=== PATIENT | male | born 1955 | race Caucasian/White ===

== ENCOUNTER 2016-04-30 12:03 | Emergency (ER) | payer OTHER ==
[2016-04-30] MEDS ORDERED: Ondansetron INJ* 2 MG/ML VIAL IV ONE (12:22)
[2016-04-30] MEDS: NS 0.9% 1000 ML* 2,000 ML IV ONE ×2 (12:35→13:11)
[2016-04-30 12:40] LABS: Hematocrit 46 % (42-52); Mean Corpuscular HGB Conc 35 g/dl (31-36); Mean Corpuscular Hemoglobin 32 pg (27-31); Mean Corpuscular Volume 92 fL (80-94); Mean Platelet Volume 7 um3 (7.4-10.4); Red Blood Count 4.99 10^6/ul (4.0-5.4); Red Cell Distribution Width 13 % (10.5-15)
[2016-04-30 12:55] LABS: ALT 27 U/L (7-52); AST 19 U/L (13-39); Albumin 4.6 g/dL (3.2-5.2); Alkaline Phosphatase 51 U/L (34-104); Anion Gap 5 mmol/L (2-11); BUN/Creatinine Ratio 10.7 (8-20); Blood Urea Nitrogen 13 mg/dL (6-24); C Reactive Protein < 1.00 mg/L (< 5.00); CO2 Carbon Dioxide 29 mmol/L (22-32); Calcium 9.6 mg/dL (8.6-10.3); Chloride 101 mmol/L (101-111); EGFR African American 77.4 (>60); EGFR Non-African American 60.2 (>60); Globulin 2.8 g/dL (2-4); Glucose 105 mg/dL (70-100); Potassium 3.8 mmol/L (3.5-5.0); Sodium 135 mmol/L (133-145); Total Protein 7.4 g/dL (6.4-8.9)
[2016-04-30 14:12] LABS: Urine Bilirubin Negative (Negative); Urine Glucose Negative (Negative); Urine Nitrite Negative (Negative)
[2016-04-30 14:32] VITALS: BP 148/83
--- NOTE | 2016-04-30 20:38 | ED ---
Colt Oliver Anna, scribed for Octaviano Coreas MD on 04/30/16 at 1218 . GI/ HPI - HPI Summary HPI Summary: Patient is a 61 y/o male coming to [facility] presenting with intermittent emesis that began four days ago. He is additionally experiencing nausea, abdominal cramping, and gas. He describes the severity of the cramping as 3/10. Denies diarrhea. The symptoms began four days ago, subsided three days ago, then returned that evening. The symptoms persisted through another day, then subsided again yesterday, when he felt mostly better. Then the symptoms returned this morning. He has not been able to eat much. He has been trying to drink Gatorade but reports he doesnt feel like hes been getting enough fluids. He had some dinner last evening at 1900, some scalloped potatoes, but has not eaten otherwise. He reports no medical problems except recent rhinorrhea. - History of Current Complaint Chief Complaint: EDNauseaVomitDiarrh Time Seen by Provider: 04/30/16 12:09 Stated Complaint: NAUSEA / VOMITING Hx Obtained From: Patient Onset/Duration: Started Days Ago, Still Present Timing: Intermittent Severity: Moderate Current Severity: Moderate Pain Intensity: 3 Pain Characteristics: Cramping Associated Signs and Symptoms: Positive: Nausea, Vomiting. Negative: Diarrhea - Allergy/Home Medications Allergies/Adverse Reactions: Allergies Allergy/AdvReac Type Severity Reaction Status Date / Time Ibuprofen Allergy Severe See Comment Verified 04/30/16 12:19 PMH/Surg Hx/FS Hx/Imm Hx Endocrine/Hematology History: Denies: Hx Diabetes, Hx Thyroid Disease Cardiovascular History: Denies: Hx Hypertension Respiratory History: Reports: Hx Sleep Apnea - HAD SURGERY ON HIS THROAT Denies: Hx Asthma, Hx Chronic Obstructive Pulmonary Disease (COPD) GI History: Denies: Hx Ulcer Musculoskeletal History: Reports: Hx Arthritis, Hx Bursitis Sensory History: Reports: Hx Contacts or Glasses - READERS Denies: Hx Hearing Aid Opthamlomology History: Reports: Hx Contacts or Glasses - READERS Psychiatric History: Reports: Hx Depression - PTSD, Hx Post Traumatic Stress Disorder - Surgical History Surgery Procedure, Year, and Place: bilateral carpal tunnel, throat surgery for lonny Hx Anesthesia Reactions: No Infectious Disease History: No Infectious Disease History: Denies: Hx Clostridium Difficile, Hx Hepatitis, Hx Human Immunodeficiency Virus (HIV), Hx of Known/Suspected MRSA, Hx Shingles, Hx Tuberculosis, Hx Known/ Suspected VRE, Hx Known/Suspected VRSA, History Other Infectious Disease, Traveled Outside the [place] in Last 30 Days - Family History Known Family History: Negative: Cardiac Disease, Diabetes - Social History Alcohol Use: Occasionally Substance Use Type: Reports: None Smoking Status (MU): Former Smoker Type: Cigars Amount Used/How Often: OCCASSIONALLY Review of Systems Positive: Nasal Discharge Positive: Abdominal Pain, Vomiting, Nausea. Negative: Diarrhea Psychological: Normal All Other Systems Reviewed And Are Negative: Yes Physical Exam Triage Information Reviewed: Yes Vital Signs On Initial Exam: Initial Vitals Temp Pulse Resp BP Pulse Ox 98.0 F 70 18 136/83 97 04/30/16 12:05 04/30/16 12:05 04/30/16 12:05 04/30/16 12:05 04/30/16 12:05 Vital Signs Reviewed: Yes Appearance: Positive: Well-Appearing, No Pain Distress, Obese Skin: Positive: Warm, Skin Color Reflects Adequate Perfusion, Dry Head/Face: Positive: Normal Head/Face Inspection Eyes: Positive: Normal ENT: Positive: Normal ENT inspection Neck: Positive: Supple, Nontender Respiratory/Lung Sounds: Positive: Clear to Auscultation, Breath Sounds Present Cardiovascular: Positive: RRR Abdomen Description: Positive: Nontender, Soft Bowel Sounds: Positive: Present Musculoskeletal: Positive: Normal Neurological: Positive: Normal Psychiatric: Positive: Affect/Mood Appropriate Diagnostics - Vital Signs Vital Signs Temp Pulse Resp BP Pulse Ox 04/30/16 12:05 98.0 F 70 18 136/83 97 - Laboratory Lab Results: Lab Results 04/30/16 04/30/16 04/30/16 Range/Units 12:31 12:31 13:56 WBC 8.0 (3.5-10.8) 10^3/ul RBC 4.99 (4.0-5.4) 10^6/ul Hgb 16.0 (14.0-18.0) g/dl Hct 46 (42-52) % MCV 92 (80-94) fL MCH 32 H (27-31) pg MCHC 35 (31-36) g/dl RDW 13 (10.5-15) % Plt Count 300 (150-450) 10^3/ul MPV 7 L (7.4-10.4) um3 Neut % (Auto) 64.9 (38-83) % Lymph % (Auto) 27.4 (25-47) % Wal[place] % (Auto) 6.2 (1-9) % Eos % (Auto) 0.6 (0-6) % Baso % (Auto) 0.9 (0-2) % Absolute Neuts (auto) 5.2 (1.5-7.7) 10^3/ul Absolute Lymphs (auto) 2.2 (1.0-4.8) 10^3/ul Absolute Monos (auto) 0.5 (0-0.8) 10^3/ul Absolute Eos (auto) 0 (0-0.6) 10^3/ul Absolute Basos (auto) 0.1 (0-0.2) 10^3/ul Absolute Nucleated RBC 0.01 10^3/ul Nucleated RBC % 0.2 Sodium 135 (133-145) mmol/L Potassium 3.8 (3.5-5.0) mmol/L Chloride 101 (101-111) mmol/L Carbon Dioxide 29 (22-32) mmol/L Anion Gap 5 (2-11) mmol/L BUN 13 (6-24) mg/dL Creatinine 1.22 H (0.67-1.17) mg/dL Est GFR ( Amer) 77.4 (>60) Est GFR (Non-Af Amer) 60.2 (>60) BUN/Creatinine Ratio 10.7 (8-20) Glucose 105 H (70-100) mg/dL Calcium 9.6 (8.6-10.3) mg/dL Total Bilirubin 0.60 (0.2-1.0) mg/dL AST 19 (13-39) U/L ALT 27 (7-52) U/L Alkaline Phosphatase 51 (34-104) U/L C-Reactive Protein < 1.00 (< 5.00) mg/L Total Protein 7.4 (6.4-8.9) g/dL Albumin 4.6 (3.2-5.2) g/dL Globulin 2.8 (2-4) g/dL Albumin/Globulin Ratio 1.6 (1-3) Urine Color Yellow Urine Appearance Clear Urine pH 7.0 (5-9) Ur Specific [place] 1.008 L (1.010-1.030) Urine Protein Negative (Negative) Urine Ketones Negative (Negative) Urine Blood Negative (Negative) Urine Nitrate Negative (Negative) Urine Bilirubin Negative (Negative) Urine Urobilinogen Negative (Negative) Ur Leukocyte Esterase Negative (Negative) Urine Glucose Negative (Negative) Result Diagrams: 04/30/16 12:31 04/30/16 12:31 Lab Statement: Any lab studies that have been ordered have been reviewed, and results considered in the medical decision making process. Re-Evaluation - Re-Evaluation First Eval Re-Evaluation Time: 13:33 Change: Improved Comment: He is feeling better following the Zofran. GIGU Course/Dx - Course Course Of Treatment: Mr. Zuniga improved with zofran and fluids. His W/U was normal and this is probably viral. - Diagnoses Provider Diagnoses: Nausea Discharge - Discharge Plan Condition: Stable Disposition: HOME Prescriptions: Ondansetron ODT TAB* [Zofran Odt TAB*] 4 mg PO Q6H PRN #20 tab.odt PRN Reason: Nausea/Vomiting Patient Education Materials: Ondansetron (By mouth), Acute Nausea and Vomiting (ED) Referrals: Melodie Nicholas MD [Primary Care Provider] - Additional Instructions: Follow up with primary care physician within 48 hours. Return to the emergency department for changing or worsening symptoms. The documentation as recorded by the Colt echevarria Anna accurately reflects the service I personally performed and the decisions made by , Octaviano Coreas MD.
== END 2016-04-30 14:31 | disposition home or self-care (01) ==
LOC: ED 12:03
DX: R11.2 Nausea with vomiting, unspecified (principal); Z87.891 Personal history of nicotine dependence; R10.9 Unspecified abdominal pain
CPT/HCPCS: 36415; 80053; 81003; 85025; 86140; 96374; 99283; J2405

== ENCOUNTER 2016-05-08 13:09 | Emergency (ER) | payer OTHER ==
[2016-05-08 13:21] VITALS: BP 134/81
--- NOTE | 2016-05-08 14:05 | RAD ---
HISTORY: Nausea, vomiting, constipation COMPARISONS: None VIEWS: Frontal views of the abdomen. FINDINGS: BOWEL: There is a nonspecific bowel gas pattern, with nondilated small bowel gas noted. There is a large amount of stool within the colon. CALCULI: There are no abnormal calculi. BONES AND SOFT TISSUES: Mild degenerative changes are noted OTHER FINDINGS: The lung bases are clear. There is no subphrenic gas. IMPRESSION: NONSPECIFIC BOWEL GAS PATTERN. LARGE AMOUNT OF STOOL WITHIN THE COLON.
--- NOTE | 2016-05-16 08:14 | UC ---
fahad Oliver Timothy, scribed for Roberto Smalls MD on 05/08/16 at 1338 . Abdominal Pain Male HPI - HPI Summary HPI Summary: Carl Zuniga is a 61 yo male presenting to [facility] with 1/10 left sided abdominal pain for the past 10 days, and constipation for the past 2 days. He states his last BM was 2 days ago and was small. He states he had nausea and vomiting over a week ago and was seen in the ED. Pt was given zofran, which he states has made him constipated. He states he is staying hydrated with fluids, but has not been eating normally due to feeling full. he occasionally has episodes of chills and diaphoresis. His MHx includes cough, sleep apnea, arthritis, PTSD, depression. - History of Current Complaint Stated Complaint: ABDOMEN PAIN,NAUSEA Time Seen by Provider: 05/08/16 13:28 Hx Obtained From: Patient Onset/Duration: Gradual Onset, Lasting Days, Still Present Timing: Constant Severity Initially: Moderate Severity Currently: Moderate Pain Intensity: 1 Pain Scale Used: 0-10 Numeric Location: Diffuse Radiates: No Aggravating Factor(s):: Food Associated Signs And Symptoms: Positive: Diaphoresis, Constipation, Decreased Appetite, Vomiting - Allergies/Home Medications Allergies/Adverse Reactions: Allergies Allergy/AdvReac Type Severity Reaction Status Date / Time Ibuprofen Allergy Severe See Comment Verified 04/30/16 12:19 PMH/Surg Hx/FS Hx/Imm Hx Endocrine History Of: Denies: Diabetes, Thyroid Disease Cardiovascular History Of: Denies: Cardiac Disorders, Hypertension Respiratory History Of: Denies: COPD, Asthma GI/ History Of: Denies: Ulcer Psychological History Of: Reports: Depression - PTSD - Surgical History Surgical History: Yes Surgery Procedure, Year, and Place: bilateral carpal tunnel, throat surgery for lonny - Family History Known Family History: Negative: Cardiac Disease, Diabetes - Social History Alcohol Use: Occasionally Substance Use Type: None Smoking Status (MU): Former Smoker Type: Cigars Amount Used/How Often: OCCASSIONALLY When Did the Patient Quit Smoking/Using Tobacco: over 20 yrs - OCCASSIONAL CIGAR Review of Systems Constitutional: Negative Skin: Negative Eyes: Negative ENT: Negative Respiratory: Negative Gastrointestinal: Abdominal Pain, Vomiting, Other - constipation Genitourinary: Negative Motor: Negative Neurovascular: Negative Musculoskeletal: Negative Neurological: Negative Psychological: Negative All Other Systems Reviewed And Are Negative: Yes Physical Exam Triage Information Reviewed: Yes Vital Signs: Initial Vital Signs Temp 98.2 F 05/08/16 13:17 Pulse 70 05/08/16 13:17 Resp 16 05/08/16 13:17 BP 134/81 05/08/16 13:17 Pulse Ox 98 05/08/16 13:17 Vital Signs Reviewed: Yes - Additional Comments VITAL SIGNS: Reviewed. GENERAL: Patient is a well developed and nourished who is lying comfortable in the stretcher. Patient is not in any acute respiratory distress. HEAD AND FACE: Normocephalic EYES: PERRLA, EOMI x 2. EARS: Hearing grossly intact. MOUTH: Oropharynx within normal limits. NECK: Supple, trachea is midline, no adenopathy, no JVD, no carotid bruit. CHEST: Symmetric, no tenderness at palpation LUNGS: Clear to auscultation bilaterally. No wheezing or crackles. CVS: Regular rate and rhythm, S1 and S2 present, no murmurs or gallops appreciated. ABDOMEN: Soft, non-tender. Bowel sounds are normal. No abdominal abnormal pulsations. EXTREMITIES: FROM in all major joints, no edema, no cyanosis or clubbing. NEURO: Alert and oriented x 3. No acute neurological deficits. Speech is normal and follows commands. SKIN: Dry and warm Diagnostics - Radiology ABD XR Xray Interpretation: Positive (See Comments) - IMPRESSION: NONSPECIFIC BOWEL GAS PATTERN. LARGE AMOUNT OF STOOL WITHIN THE COLON. Radiology Interpretation Completed By: Radiologist Re-Evaluation - Re-Evaluation First Eval Re-Evaluation Time: 14:15 Change: Unchanged Comment: Pt is informed of results of his imaging study. He is agreeable to current course of Tx. Abd Pain Male Course/Dx - Course Course Of Treatment: Carl Zuniga is a 61 yo male presenting to [facility] with 1/10 left sided abdominal pain for the past 10 days, and constipation for the past 2 days. He states his last BM was 2 days ago and was small. He states he had nausea and vomiting over a week ago and was seen in the ED. Pt was given zofran, which he states has made him constipated. He states he is staying hydrated with fluids, but has not been eating normally due to feeling full. he occasionally has episodes of chills and diaphoresis. His MHx includes cough, sleep apnea, arthritis, PTSD, depression. Abd SX suggested: NONSPECIFIC BOWEL GAS PATTERN. LARGE AMOUNT OF STOOL WITHIN THE COLON. P/E: he is confortable, not in acute pain. Declined rectal exam. He has had small bowel movements and he is passing mat and badominal x ray shows no signs of small bowel obstruction. Pt was given miralax, lactulose, and magnesium citrate Rx. Pt will be discharged with follow up with his PCP. He has been instructed to present to [facility] if his Sx worsen. I discussed all the findings and test results with the patient. Patient was instructed to return to the emergency room immediately if any of the symptoms return or worsens. They were explained the possibility of an early abdominal pathology which was not detected at this time despite the physical exam and testing. They understand and agree. Abdominal exam before discharge: Soft, NT. No signs of distention. BS present. No rebound no guarding, and no masses palpated. Patient is alert and oriented and hemodynamically stable. Patient is to follow up with primary care physician in the next 2 to 3 days. Patient agree and understands. - Differential Dx/Clinical Impression Differential Diagnosis/HQI/PQRI: Bowel Obstruction, Constipation Provider Diagnoses: constipation Discharge - Discharge Plan Condition: Stable Disposition: HOME Prescriptions: Lactulose* 30 ml PO BID #60 ml Magnesium CITRATE* [Citrate of Magnesia*] 150 ml PO SEE INSTRUCTIONS #1 btl Polyethylene Glycol 3350* [Miralax*] 17 gm PO DAILY #12 packet Patient Education Materials: Constipation (ED) Referrals: Melodie Nicholas MD [Primary Care Provider] - 2 Days Additional Instructions: Please follow up with your primary care physician regarding your visit to urgent care today. Return to urgent care or the emergency department with any new or recurring symptoms. The documentation as recorded by the fahad echevarria Timothy accurately reflects the service I personally performed and the decisions made by , Roberto Smalls MD.
== END 2016-05-08 14:21 | disposition home or self-care (01) ==
LOC: UCEAST 13:09
DX: K59.03 Drug induced constipation (principal); T45.0X5A Adverse effect of antiallergic and antiemetic drugs, initial encounter; Y92.9 Unspecified place or not applicable; Z88.6 Allergy status to analgesic agent; Z87.891 Personal history of nicotine dependence
CPT/HCPCS: 74020; 99212; G0463

== ENCOUNTER 2016-05-09 19:47 | Emergency (ER) | payer OTHER ==
--- NOTE | 2016-05-09 22:08 | ED ---
Abdominal Pain/Male - HPI Summary HPI Summary: The patient is a 61 male presenting to ED for complaint of abdominal pain and constipation. Last formed BM 2 weeks ago. Admits to associated chills, generalized abdominal cramping, post oral intake vomiting, and persistent nausea. Denies fever, nasal symptoms, sore throat, cough, shortness of breath, chest pain, dysuria, change in voiding, hematuria, bloody or black tarry stool. Initially evaluated at prompt care with KUB demonstrating constipation Rx lactulose, magnesium citrate, and miralax. Since starting laxative, has been having leaking of watery stool without formed BM. History of carpal tunnel release, and oropharyngeal surgery for RYLAND. FH of father from Lung CA and mother alive with dementia. SH: Former smoker. Rare ETOH. - History of Current Complaint Chief Complaint: EDGeneral Stated Complaint: CONSTIPATION Time Seen by Provider: 05/09/16 21:37 Pain Intensity: 4 - Allergies/Home Medications Allergies/Adverse Reactions: Allergies Allergy/AdvReac Type Severity Reaction Status Date / Time Ibuprofen Allergy Severe See Comment Verified 04/30/16 12:19 PMH/Surg Hx/FS Hx/Imm Hx Endocrine/Hematology History: Denies: Hx Diabetes, Hx Thyroid Disease Cardiovascular History: Denies: Hx Hypertension Respiratory History: Reports: Hx Sleep Apnea - HAD SURGERY ON HIS THROAT Denies: Hx Asthma, Hx Chronic Obstructive Pulmonary Disease (COPD) GI History: Denies: Hx Ulcer Musculoskeletal History: Reports: Hx Arthritis, Hx Bursitis Sensory History: Reports: Hx Contacts or Glasses - READERS Denies: Hx Hearing Aid Opthamlomology History: Reports: Hx Contacts or Glasses - READERS Psychiatric History: Reports: Hx Depression - PTSD, Hx Post Traumatic Stress Disorder - Surgical History Surgery Procedure, Year, and Place: bilateral carpal tunnel, throat surgery for ryland Hx Anesthesia Reactions: No Infectious Disease History: No Infectious Disease History: Denies: Hx Clostridium Difficile, Hx Hepatitis, Hx Human Immunodeficiency Virus (HIV), Hx of Known/Suspected MRSA, Hx Shingles, Hx Tuberculosis, Hx Known/ Suspected VRE, Hx Known/Suspected VRSA, History Other Infectious Disease, Traveled Outside the [place] in Last 30 Days - Family History Known Family History: Positive: Unknown Negative: Cardiac Disease, Diabetes - Social History Alcohol Use: Occasionally Substance Use Type: Reports: None Smoking Status (MU): Former Smoker Type: Cigars Amount Used/How Often: OCCASSIONALLY Review of Systems Positive: Chills. Negative: Fever ENT: Negative Negative: Nasal Discharge Cardiovascular: Negative Negative: Chest Pain Respiratory: Negative Negative: Shortness Of Breath, Cough Positive: Abdominal Pain, Vomiting, Nausea, Other - constipation Genitourinary: Negative Negative: burning, dysuria, hematuria All Other Systems Reviewed And Are Negative: Yes Physical Exam Triage Information Reviewed: Yes Vital Signs On Initial Exam: Initial Vitals Temp Pulse Resp BP Pulse Ox 96.1 F 83 16 128/79 99 05/09/16 20:16 05/09/16 20:16 05/09/16 20:16 05/09/16 20:16 05/09/16 20:16 Vital Signs Reviewed: Yes Appearance: Positive: Well-Appearing, Well-Nourished, Pain Distress - mild pain Skin: Positive: Warm, Skin Color Reflects Adequate Perfusion, Dry Head/Face: Positive: Normal Head/Face Inspection Eyes: Positive: Normal - Anicteric ENT: Positive: Other - Oral mucosa moist. Neck: Positive: Supple Respiratory/Lung Sounds: Positive: Clear to Auscultation, Breath Sounds Present. Negative: Decreased Breath Sounds, Rales, Rhonchi, Wheezes Cardiovascular: Positive: Normal - Radial pulse 2+, RRR, S1, S2. Negative: Murmur, Rub Abdomen Description: Positive: No Organomegaly, Soft, Other: - mild RLQ tenderness. Negative: CVA Tenderness (R), CVA Tenderness (L), Distended, Guarding, Hernia @, Hepatomegaly, Peritoneal Signs, Splenomegaly Bowel Sounds: Positive: Present Musculoskeletal: Positive: Normal - AROM all extremities Neurological: Positive: Normal - awake, alert, Facial Symmetry, Speech Normal Psychiatric: Positive: Normal AVPU Assessment: Alert - [place] Coma Scale Coma Scale Total: 15 Diagnostics - Vital Signs Vital Signs Temp Pulse Resp BP Pulse Ox 05/09/16 21:43 63 155/77 97 05/09/16 21:42 64 97 05/09/16 20:16 96.1 F 83 16 128/79 99 - Laboratory Result Diagrams: 05/09/16 22:45 05/09/16 22:45 Lab Statement: Any lab studies that have been ordered have been reviewed, and results considered in the medical decision making process. Re-Evaluation - Re-Evaluation First Eval Re-Evaluation Time: 01:44 Change: Improved Comment: Reports improved abdominal pain. Had once watery BM while in ED. Discussed lab results. Awaiting [facility] report for CT. Abdominal Pain Fem Course/Dx - Course Course Of Treatment: Patient presented for abdominal pain with recent constipation with resulting diarrhea after laxative use. Afebrile without leukocytosis. No acute abdomen on exam. Labs significant for Cl 98, Cr. 1.19 treated with NS 1 L bolus. 0204: Still no [facility] report on fax machine or patient chart. Called endoscopy specialty technician. She will review her own results. 0213: endoscopy specialty technician printed report available to her which does not appear to have been faxed to ED department. CT without acute intraabdominal process. Discussed with patient discontinuing laxatives, resuming normal diet with increased fluid intake to replace volume lost in watery stool. Advised to follow-up with PCP in 5-7 days. - Diagnoses Provider Diagnoses: Abdominal pain Discharge - Discharge Plan Condition: Stable Disposition: HOME Patient Education Materials: Abdominal Pain (ED) Referrals: Melodie Nicholas MD [Primary Care Provider] - 5 Days
[2016-05-09] MEDS ORDERED: diPHENhydraMINE IV* 50 MG/ML 1 ml VIAL (BENADRYL) IV ONE (22:10)
[2016-05-09] MEDS ORDERED: Metoclopramide IV* 5 MG/ML 2 ML VIAL IV SLOW PU ONE (22:10)
[2016-05-09] MEDS ORDERED: NS 0.9% 1000 ML* 1,000 ML IV SCH (22:15)
[2016-05-09 22:57] LABS: Hematocrit 46 % (42-52); Hemoglobin 16.1 g/dl (14.0-18.0); Mean Corpuscular HGB Conc 35 g/dl (31-36); Mean Corpuscular Hemoglobin 32 pg (27-31); Mean Corpuscular Volume 93 fL (80-94); Mean Platelet Volume 7 um3 (7.4-10.4); Red Cell Distribution Width 13 % (10.5-15); White Blood Count 7.9 10^3/ul (3.5-10.8)
[2016-05-09 23:11] LABS: Albumin 4.8 g/dL (3.2-5.2); BUN/Creatinine Ratio 11.8 (8-20); Calcium 9.8 mg/dL (8.6-10.3); EGFR African American 79.7 (>60); EGFR Non-African American 61.9 (>60); Globulin 2.9 g/dL (2-4); Potassium 4.1 mmol/L (3.5-5.0); Total Bilirubin 0.5 mg/dL (0.2-1.0); Total Protein 7.7 g/dL (6.4-8.9)
[2016-05-09] MEDS ORDERED: Iohexol 300* (CONTRAST) 10 ML SDV IV ONE (23:41)
[2016-05-10 02:32] VITALS: BP 133/74
--- NOTE | 2016-05-10 07:51 | RAD ---
CLINICAL HISTORY: Right lower quadrant tenderness COMPARISON: None TECHNIQUE: Multiple contiguous axial CT scans were obtained of the abdomen and pelvis after the administration of intravenous contrast. Coronal and sagittal multiplanar reformations are submitted for review. Oral contrast was administered. Delayed images were obtained through the abdomen and pelvis. FINDINGS: LUNG BASES: The lung bases are clear. LIVER: The liver is diffusely low in attenuation compared to the spleen. There is focal fatty sparing along the ligamentum teres hepatis. There are no focal hepatic parenchymal masses. BILE DUCTS: There is no intrahepatic or extrahepatic biliary dilatation. GALLBLADDER: The gallbladder is normal, without pericholecystic inflammatory change. PANCREAS: The pancreas is normal, without mass or ductal dilatation. SPLEEN: Normal in size and appearance. UPPER GI TRACT: Evaluation of the gastrointestinal tract is limited by incomplete gastric distention. The upper GI tract is unremarkable. SMALL BOWEL AND MESENTERY: The small bowel is normal in contour, course, and caliber. There is no obstruction or dilatation. COLON: The colon is normal in contour, course, caliber. There is no pericolonic inflammatory change. There is a tubular, vermiform, hollow viscus that is blind ending, and originates from the cecum, consistent with a normal appendix. There is no periappendiceal inflammatory change. This is best seen on images 108 through 122 ADRENALS: Normal bilaterally. KIDNEYS: There are small renal cysts. BLADDER: The bladder is incompletely distended but is grossly normal. PELVIC ORGANS: The prostate gland is normal. The seminal vesicles are symmetric. AORTA: The aorta is normal. IVC: Unremarkable LYMPH NODES: There is no lymphadenopathy by size criteria. ABDOMINAL WALL: There is no evidence for abdominal wall hernia. BONES AND SOFT TISSUES: There are mild diffuse degenerative changes. OTHER: None IMPRESSION: 1. NORMAL APPENDIX. 2. FATTY LIVER. 3. NO ACUTE CT PATHOLOGY OF THE VISUALIZED PORTION OF THE ABDOMEN AND PELVIS
== END 2016-05-10 02:33 | disposition home or self-care (01) ==
LOC: ED 19:47
DX: R10.9 Unspecified abdominal pain (principal); R11.2 Nausea with vomiting, unspecified; K59.00 Constipation, unspecified
CPT/HCPCS: 36415; 74177; 80053; 85025; 96374; 96375; 99283; J1200; Q9967

== ENCOUNTER 2018-01-12 12:56 | Emergency (ER) | payer OTHER ==
[2018-01-12 13:07] VITALS: BP 126/83
--- NOTE | 2018-01-12 13:32 | UC ---
Throat Pain/Nasal Ovidio HPI - HPI Summary HPI Summary: 62-year-old male here with a chief complaint of runny nose left ear pain and sore throat. Been going off for 2 days. No fevers or chills. NO Cough. No bodyaches - History of Current Complaint Chief Complaint: UCGeneralIllness Stated Complaint: L EAR PAIN, SORE THROAT Time Seen by Provider: 01/12/18 13:09 Pain Intensity: 6 - Allergies/Home Medications Allergies/Adverse Reactions: Allergies Allergy/AdvReac Type Severity Reaction Status Date / Time ibuprofen Allergy Severe hyper Verified 01/12/18 13:07 PMH/Surg Hx/FS Hx/Imm Hx Previously Healthy: Yes - Surgical History Surgical History: Yes Surgery Procedure, Year, and Place: bilateral carpal tunnel, throat surgery for lonny - Family History Known Family History: Positive: Unknown Negative: Cardiac Disease, Diabetes - Social History Alcohol Use: Occasionally Substance Use Type: None Smoking Status (MU): Current Some Day Smoker Type: Cigars Amount Used/How Often: OCCASSIONALLY When Did the Patient Quit Smoking/Using Tobacco: over 20 yrs - OCCASSIONAL CIGAR Household Exposure Type: Cigars Review of Systems All Other Systems Reviewed And Are Negative: Yes Constitutional: Positive: Negative Skin: Positive: Negative Eyes: Positive: Negative ENT: Positive: Sore Throat, Ear Ache, Nasal Discharge, Sinus Congestion Respiratory: Positive: Negative Cardiovascular: Positive: Negative Gastrointestinal: Positive: Negative Motor: Positive: Negative Neurovascular: Positive: Negative Musculoskeletal: Positive: Negative Neurological: Positive: Negative Psychological: Positive: Negative Is Patient Immunocompromised?: No Physical Exam Triage Information Reviewed: Yes Appearance: No Pain Distress, Well-Nourished, Ill-Appearing - MILD Vital Signs: Initial Vital Signs Temp 97.6 F 01/12/18 13:04 Pulse 74 01/12/18 13:04 Resp 18 01/12/18 13:04 BP 126/83 01/12/18 13:04 Pulse Ox 97 01/12/18 13:04 Vital Signs Reviewed: Yes Eye Exam: Normal Eyes: Positive: Conjunctiva Clear ENT: Positive: Pharyngeal erythema, Nasal congestion, Nasal drainage, TMs normal Neck exam: Normal Neck: Positive: Supple Respiratory: Positive: Lungs clear, Normal breath sounds, No respiratory distress Cardiovascular: Positive: RRR Musculoskeletal Exam: Normal Musculoskeletal: Positive: Strength Intact, ROM Intact Neurological Exam: Normal Neurological: Positive: Alert, Muscle Tone Normal Psychological Exam: Normal Psychological: Positive: Normal Response To Family, Age Appropriate Behavior Skin Exam: Normal Throat Pain/Nasal Course/Dx - Course Course Of Treatment: DISCUSSED VIRAL VERSES BACTERIAL INFECTIONS AND THE ROLE OF ANTIBIOTICS. THE PATIENT PREFERS TO BE ON ANTIBIOTICS AT THIS TIME. - Differential Dx/Diagnosis Provider Diagnosis: Upper respiratory infection Discharge - Sign-Out/Discharge Documenting (check all that apply): Patient Departure All imaging exams completed and their final reports reviewed: No Studies - Discharge Plan Condition: Stable Disposition: HOME Prescriptions: Azithromyxin HITESH (NF) [Z-Hitesh (Zithromax) 250 mg tabs #6] 2 tab PO .TODAY, THEN 1 DAILY #6 tab Patient Education Materials: Upper Respiratory Infection (ED) Referrals: Melodie Nicholas MD [Primary Care Provider] - Additional Instructions: FOLLOW UP WITH YOUR DOCTOR IF NOT COMPLETELY IMPROVED. GET RECHECKED FOR ANY WORSENING OF YOUR CONDITION OR QUESTIONS OR CONCERNS. - Billing Disposition and Condition Condition: STABLE Disposition: Home
== END 2018-01-12 13:39 | disposition home or self-care (01) ==
LOC: UCEAST 12:56
DX: J06.9 Acute upper respiratory infection, unspecified (principal); Z88.6 Allergy status to analgesic agent; F17.210 Nicotine dependence, cigarettes, uncomplicated
CPT/HCPCS: 99212; G0463

== ENCOUNTER 2018-05-01 07:11 | Emergency (ER) | payer OTHER ==
[2018-05-01 07:27] VITALS: BP 146/84
--- NOTE | 2018-05-01 07:51 | UC ---
Respiratory Complaint HPI - HPI Summary HPI Summary: 5-6 DAYS OF NASAL CONGESTION. CAN'T BREATHE THROUGH HIS NOSE WHICH IS KEEPING HIM FROM SLEEPING AT NIGHT. HAS MILD COUGH AND PND. NO FEVER, ST, EAR PAIN, N/ V. - History of Current Complaint Chief Complaint: UCRespiratory Stated Complaint: CONGESTED Time Seen by Provider: 05/01/18 07:37 Hx Obtained From: Patient Onset/Duration: Gradual Onset, Lasting Days, Still Present Timing: Constant Severity Initially: Moderate Severity Currently: Moderate Pain Intensity: 0 Pain Scale Used: 0-10 Numeric Character: Cough: Nonproductive Aggravating Factors: Recumbent Position Alleviating Factors: Nothing Associated Signs And Symptoms: Positive: URI, Nasal Congestion. Negative: Dyspnea, Fever, Chills, Wheezing, Hoarseness, Sinus Discomfort - Allergies/Home Medications Allergies/Adverse Reactions: Allergies Allergy/AdvReac Type Severity Reaction Status Date / Time ibuprofen Allergy Severe hyper Verified 05/01/18 07:27 Home Medications: Home Medications Guaifenesin/Pseudoephedrne HCl [Mucinex D ER 1,200-120 mg Tab] 1 tab PO Q12H PRN 05/01/18 [History Confirmed 05/01/18] PMH/Surg Hx/FS Hx/Imm Hx - Additional Past Medical History Additional PMH: SLEEP APNEA Psychological History: Post Traumatic Stress Disorder - Surgical History Surgical History: Yes Surgery Procedure, Year, and Place: bilateral carpal tunnel, throat surgery for lonny - Family History Known Family History: Positive: Unknown Negative: Cardiac Disease, Diabetes - Social History Alcohol Use: Occasionally Substance Use Type: None Smoking Status (MU): Current Some Day Smoker Type: Cigars Amount Used/How Often: OCCASSIONALLY When Did the Patient Quit Smoking/Using Tobacco: over 20 yrs - OCCASSIONAL CIGAR Household Exposure Type: Cigars Review of Systems All Other Systems Reviewed And Are Negative: Yes Constitutional: Positive: Negative ENT: Positive: Nasal Discharge. Negative: Sore Throat, Ear Ache, Sinus Pain/ Tenderness Respiratory: Positive: Cough Cardiovascular: Positive: Negative Gastrointestinal: Positive: Negative Physical Exam Triage Information Reviewed: Yes Appearance: Well-Appearing, No Pain Distress, Well-Nourished Vital Signs: Initial Vital Signs Temp 97.7 F 05/01/18 07:22 Pulse 79 05/01/18 07:22 Resp 16 03/15/19 07:22 BP 146/84 05/01/18 07:22 Pulse Ox 98 05/01/18 07:22 Vital Signs Reviewed: Yes Eyes: Positive: Conjunctiva Clear ENT: Positive: Hearing grossly normal, Pharynx normal - uvula removed, Nasal congestion, TMs normal. Negative: Pharyngeal erythema, Sinus tenderness Neck: Positive: Supple, Nontender, No Lymphadenopathy Respiratory Exam: Normal Cardiovascular Exam: Normal Abdomen Description: Positive: Soft Musculoskeletal: Positive: No Edema Neurological: Positive: Alert Psychological: Positive: Age Appropriate Behavior Skin: Negative: Rashes Respiratory Course/Dx - Differential Dx/Diagnosis Provider Diagnosis: Acute URI Discharge - Sign-Out/Discharge Documenting (check all that apply): Patient Departure All imaging exams completed and their final reports reviewed: No Studies - Discharge Plan Condition: Stable Disposition: HOME Prescriptions: predniSONE TAB* [Deltasone 20 MG TAB*] 40 mg PO DAILY #10 tab Patient Education Materials: Upper Respiratory Infection (ED) Referrals: Melodie Nicholas MD [Primary Care Provider] - If Needed Additional Instructions: YOUR SYMPTOMS ARE LIKELY VIRALLY MEDIATED AND SHOULD RESOLVE ON THEIR OWN WITH TIME. NO INDICATION FOR ANTIBIOTICS AT PRESENT. REST, HYDRATE, OTC MEDS NEEDED. WILL TREAT WITH PREDNISONE TO HELP WITH INFLAMMATION. SEEK FOLLOW-UP IF YOU ARE NOT IMPROVING OVER THE NEXT 1-2 WEEKS. USE OTC AFRIN FOR NASAL CONGESTION. 2 SPRAYS IN EACH NOSTRIL TWICE DAILY NEEDED. DO NOT USE FOR MORE THAN 3-4 DAYS IN A ROW TO PREVENT DEVELOPING REBOUND CONGESTION. - Billing Disposition and Condition Condition: STABLE Disposition: Home
== END 2018-05-01 07:53 | disposition home or self-care (01) ==
LOC: UCEAST 07:11
DX: J06.9 Acute upper respiratory infection, unspecified (principal); F17.210 Nicotine dependence, cigarettes, uncomplicated; Z88.8 Allergy status to other drugs, medicaments and biological substances
CPT/HCPCS: 99212; G0463